=== PATIENT | female | born 1945 | race Caucasian/White ===

== ENCOUNTER 2018-01-03 05:44 | Observation (INO) | payer MEDICARE ==
[2018-01-03] MEDS ORDERED: NS 0.9% 1000 ML* 1,000 ML IV SCH ×3 (06:15→13:49)
[2018-01-03 06:29] LABS: ABS Basophils 0.1 10^3/ul (0-0.2); ABS Eosinophils 0.2 10^3/ul (0-0.6); ABS Lymphocytes 1.2 10^3/ul (1.0-4.8); ABS Monocytes 0.3 10^3/ul (0-0.8); ABS Neutrophils 6.5 10^3/ul (1.5-7.7); ABS Nucleated RBC 0 10^3/ul; Eosinophil % 1.9 % (0-6); Hematocrit 37 % (35-47); Hemoglobin 12.9 g/dl (12.0-16.0); Lymphocyte % 14.3 % (25-47); Mean Corpuscular HGB Conc 35 g/dl (31-36); Mean Corpuscular Hemoglobin 31 pg (27-31); Mean Corpuscular Volume 90 fL (80-97); Mean Platelet Volume 8 um3 (7.4-10.4); Nucleated Red Blood Cells % 0; Platelet Count 214 10^3/ul (150-450); Red Blood Count 4.12 10^6/ul (4.0-5.4); Red Cell Distribution Width 13 % (10.5-15); White Blood Count 8.2 10^3/ul (3.5-10.8)
[2018-01-03 06:45] LABS: INR 0.86 (0.77-1.02)
[2018-01-03 06:46] LABS: EGFR Non-African American 88.5 (>60)
--- NOTE | 2018-01-03 06:47 | ED ---
Heidi Fernandes Thomas, scribed for Sylvie Burt MD on 01/03/18 at 0631 . GI/ HPI - HPI Summary HPI Summary: The patient is a 72 year old female presenting with rectal bleeding since yesterday at 21:00. The patient reports that once hourly she has the urge to defecate, and she passes blood. The additionally complains of diarrhea and abdominal pain that began when the rectal bleeding began. Her last colonoscopy was 10 years ago. She denies a history of diverticulitis. - History of Current Complaint Chief Complaint: EDGIBleed Time Seen by Provider: 01/03/18 06:02 Stated Complaint: SYNCOPE Hx Obtained From: Patient Onset/Duration: Started Hours Ago, Still Present Timing: Intermittent Current Severity: Moderate Pain Intensity: 8 Associated Signs and Symptoms: Positive: Other: - Diarrhea, blood from rectum, abd pain Alleviating Factor(s): Nothing - Allergy/Home Medications Allergies/Adverse Reactions: Allergies Allergy/AdvReac Type Severity Reaction Status Date / Time Sulfa (Sulfonamide Allergy Hives Verified 01/03/18 05:54 Antibiotics) PMH/Surg Hx/FS Hx/Imm Hx Endocrine/Hematology History: Denies: Hx Diabetes Cardiovascular History: Reports: Hx Hypertension GI History: Denies: Hx Diverticulosis - Cancer History Hx Chemotherapy: No Hx Radiation Therapy: No - Surgical History Surgery Procedure, Year, and Place: wisdom teeth Infectious Disease History: No Infectious Disease History: Denies: Hx Clostridium Difficile, Hx Hepatitis, Hx Human Immunodeficiency Virus (HIV), Hx of Known/Suspected MRSA, Hx Shingles, Hx Tuberculosis, Hx Known/ Suspected VRE, Hx Known/Suspected VRSA, History Other Infectious Disease, Traveled Outside the [place] in Last 30 Days - Family History Known Family History: Positive: Cardiac Disease, Hypertension - Social History Alcohol Use: Daily Substance Use Type: Reports: None Smoking Status (MU): Never Smoked Tobacco Review of Systems Negative: Fever Positive: Abdominal Pain, Diarrhea, Other - Blood from rectum All Other Systems Reviewed And Are Negative: Yes Physical Exam - Summary Physical Exam Summary: VITAL SIGNS: Reviewed. GENERAL: Patient is a well-developed and nourished female who is lying comfortable in the stretcher. Patient is not in any acute respiratory distress. HEAD AND FACE: No signs of trauma. No ecchymosis, hematomas or skull depressions. No sinus tenderness. EYES: PERRLA, EOMI x 2, No injected conjunctiva, no nystagmus. EARS: Hearing grossly intact. Ear canals and tympanic membranes are within normal limits. MOUTH: Oropharynx within normal limits. NECK: Supple, trachea is midline, no adenopathy, no JVD, no carotid bruit, no c- spine tenderness, neck with full ROM. CHEST: Symmetric, no tenderness at palpation LUNGS: Clear to auscultation bilaterally. No wheezing or crackles. CVS: Regular rate and rhythm, S1 and S2 present, no murmurs or gallops appreciated. ABDOMEN: Soft, non-tender. No signs of distention. No rebound no guarding, and no masses palpated. Bowel sounds are mildly hyperactive. RECTAL: She does not have any masses. Empty rectum. No stools and no blood. EXTREMITIES: FROM in all major joints, no edema, no cyanosis or clubbing. NEURO: Alert and oriented x 3. No acute neurological deficits. Speech is normal and follows commands. SKIN: Dry and warm Triage Information Reviewed: Yes Vital Signs On Initial Exam: Initial Vitals Temp Pulse Resp BP Pulse Ox 98.5 F 81 16 165/91 98 01/03/18 05:50 01/03/18 05:50 01/03/18 05:50 01/03/18 05:50 01/03/18 05:50 Vital Signs Reviewed: Yes Diagnostics - Vital Signs Vital Signs Temp Pulse Resp BP Pulse Ox 01/03/18 05:50 98.5 F 81 16 165/91 98 - Laboratory Result Diagrams: 01/03/18 06:15 Lab Statement: Any lab studies that have been ordered have been reviewed, and results considered in the medical decision making process. - CT CT Abd/Pel CT Interpretation Completed By: ED Physician - CT A/P is ordered at time of sign out. - EKG 06:14 Cardiac Rate: NL EKG Rhythm: Sinus Rhythm - at 65 BPM EKG Interpretation: LAD. Normal intervals. No ischemic change. GIGU Course/Dx - Course Assessment/Plan: The patient is a 72 year old female presenting with rectal bleeding since yesterday at 21:00. She also complains of diarrhea and abdominal pain. In the ED course the patient was given IV fluids. Bloodwork was obtained. EKG was obtained. CT Abd/Pel is ordered but pending at time of sign out. The patient is diagnosed with rectal bleeding and abdominal pain. The patient is signed out to Dr. Collazo at shift change, pending CT Abd/Pel. - Diagnoses Provider Diagnoses: Rectal bleeding, Abdominal pain Discharge - Discharge Plan Condition: Stable Disposition: OTHER Discharge Disposition Comment: Patient is signed out to Dr. Collazo at shift change pending CT A/P. Referrals: Manny Ramirez MD [Primary Care Provider] - The documentation as recorded by the Heidi hong Thomas accurately reflects the service I personally performed and the decisions made by , Sylvie Burt MD.
[2018-01-03] MEDS ORDERED: Iohexol 300* (CONTRAST) 10 ML SDV IV ONE (08:13)
--- NOTE | 2018-01-03 09:04 | RAD ---
Indication: Abdominal pain. Contrast: Administered 68.2 ml of OMNIPAQUE 300 mg/ml CT of the abdomen and pelvis was performed after oral and IV contrast administration. Coronal and sagittal reconstructed images were obtained. No prior study is available for comparison. Lung bases demonstrate no pleural fluid, nodules or masses. Heart is of normal size without evidence of pericardial effusion. Liver is normal in size. No focal lesions or intrahepatic ductal dilatation is noted. The gallbladder demonstrates no calcified gallstones. No pericholecystic fluid or wall thickening is noted. The spleen is normal in size. The pancreas demonstrates pancreatic duct dilatation without focal masses. No evidence of abrupt termination of the duct is noted. No adrenal masses are noted. The kidneys demonstrate symmetric nephrograms without hydronephrosis. No retroperitoneal lymphadenopathy is noted. The colon is filled with stool. There is circumferential mucosal thickening of the colon from the splenic flexure to the descending colon with pericolonic edema noted. This is suspicious for colitis. This may be due to inflammatory bowel disease, ischemic or infectious colitis. The sigmoid colon is otherwise unremarkable. The uterus and ovaries are unremarkable. A small amount of free fluid is noted in the pelvis. Urinary bladder is otherwise unremarkable. There are multiple prominent vascular structures along the uterus with a prominent left ovarian vein. The possibility of pelvic congestion should BE considered. The bony structures demonstrate multilevel degenerative disc disease. No compression fracture is noted. IMPRESSION: THERE IS MUCOSAL THICKENING OF THE COLON FROM THE SPLENIC FLEXURE TO THE PROXIMAL DESCENDING COLON WITH PERICOLONIC EDEMA AND SOME FREE FLUID IN THE PELVIS. FINDINGS ARE SUSPICIOUS FOR COLITIS WHICH MAY BE INFECTIOUS, ISCHEMIC OR INFLAMMATORY. SMALL AMOUNT OF FREE FLUID IS NOTED IN THE PELVIS. PROMINENT OVARIAN AND UTERINE VESSELS ARE NOTED WITH A PROMINENT LEFT OVARIAN VEIN IN THE POSSIBILITY OF PELVIC CONGESTION SHOULD BE CONSIDERED.
[2018-01-03] MEDS ORDERED: NS 0.9% 1000 ML* 1,000 ML IV ONE (10:32)
[2018-01-03] MEDS ORDERED: Morphine INJ* 2 MG/ML 1 ML CARPUJECT IV PRN (11:39)
[2018-01-03] MEDS ORDERED: Ondansetron INJ* 2 MG/ML VIAL IV PRN (11:39)
--- NOTE | 2018-01-03 11:55 | ED ---
Jacinto Fernandes Stephanie, swetaibed for Saroj Collazo MD on 01/03/18 at 1140 . Progress - Results/Orders Results/Orders: CT abdomen/pelvis reveals: THERE IS MUCOSAL THICKENING OF THE COLON FROM THE SPLENIC FLEXURE TO THE PROXIMAL DESCENDING COLON WITH PERICOLONIC EDEMA AND SOME FREE FLUID IN THE PELVIS. FINDINGS ARE SUSPICIOUS FOR COLITIS WHICH MAY BE INFECTIOUS, ISCHEMIC OR INFLAMMATORY. SMALL AMOUNT OF FREE FLUID IS NOTED IN THE PELVIS. PROMINENT OVARIAN AND UTERINE VESSELS ARE NOTED WITH A PROMINENT LEFT OVARIAN VEIN IN THE POSSIBILITY OF PELVIC CONGESTION SHOULD BE CONSIDERED. ED physician agrees with this report. Course/Dx - Course Course Of Treatment: The pt continues to have a BM hourly. The BM is about .5 a cup each time. Initially, the stool was bloody. As time has progressed, the stool has become a black/rown liquidy stool. Volume is still about 40 cc. The pt was discussed with Dr. Stringer who suggests admission. Hospital accepts admission of the pt into the hospital. The pt understands and agrees with plan of admission. - Diagnoses Provider Diagnoses: Rectal bleeding, Abdominal pain, Diarrhea Discharge - Sign-Out/Discharge Documenting (check all that apply): Discharge, Receiving Sign-Out Receiving patient FROM: Sylvie Burt - Discharge Plan Condition: Stable Disposition: ADMITTED TO [facility] - Billing Disposition and Condition Condition: STABLE [place] [facility] [place] The documentation as recorded by the Jacinto hong Stephanie accurately reflects the service I personally performed and the decisions made by , Saroj Collazo MD.
[2018-01-03 12:56] LABS: Hematocrit 36 % (35-47); Hemoglobin 12.4 g/dl (12.0-16.0)
[2018-01-03] MEDS: Acetaminophen TAB* 325 MG PO PRN ×2 (13:39→22:47)
[2018-01-03] MEDS: metroNIDAZOLE IV 500 MG/100ML* 500 MG/100 ML BAG IVPB SCH ×2 (13:40→22:49)
[2018-01-03] MEDS: Ciprofloxacin 400MG IVPREMIX(* 400 MG/200 ML BAG IVPB SCH (13:52)
[2018-01-03] MEDS ORDERED: Al Hydrox/Mg Hydrox/Simet LIQ* 30 ML UDC PO ONE (15:19)
[2018-01-03] MEDS ORDERED: Lidocaine 2% VISCOUS* 15 ML UDC PO ONE (15:19)
--- NOTE | 2018-01-03 18:19 | ECHO ---
Patient: ISABEL ROSALES [facility] Rec#: [id number] : 1945 Date: 01/03/2018 Age: 72y Height: 152.4 cm / 60.0 in Weight: 50.8 kg / 112.0 lbs Sex: F BSA: 1.46 Room#: [facility] Admit Date#: 01/03/2018 Type: Inpatient Referring: Joshua Seaman NP Reading: Dudley Odom MD Brim Edge Trimmer: Katheryn Torres RN RDCS CC: Manny Ramirez MD Transthoracic Echocardiogram Indication: Syncope BP: 163/85 HR: 61 Rhythm: NSR Findings History: HTN Technical Comments: The study quality is fair. Left Ventricle: The left ventricular chamber size is normal. Mild concentric left ventricular hypertrophy is observed. There is increased basal septal hypertrophy noted without evidence of an increased gradient across the left ventricular outflow tract. Global left ventricular wall motion and contractility are within normal limits. There is normal left ventricular systolic function. The estimated ejection fraction is 60-65%. There is an E to A reversal in the mitral valve flow pattern suggestive of diastolic dysfunction. Left Atrium: The left atrial chamber size is normal. Right Ventricle: The right ventricular chamber size and systolic function are within normal limits. Right Atrium: The right atrial cavity size is normal. Aortic Valve: The aortic valve is trileaflet. The aortic valve leaflets are mildly thickened. There is no evidence of aortic regurgitation. There is no evidence of aortic stenosis. Mitral Valve: The mitral valve leaflets are mildly thickened. Mild subvalvular thickening of the mitral valve is visualized. There is mild mitral regurgitation. There is no evidence of mitral stenosis. Tricuspid Valve: The tricuspid valve leaflets are normal. There is mild to moderate tricuspid regurgitation. No pulmonary hypertension is noted. There is no tricuspid stenosis. Pulmonic Valve: The pulmonic valve appears normal. There is a trace pulmonic regurgitation. There is no pulmonic stenosis. Pericardium: There is no significant pericardial effusion. A pericardial fat pad is visualized. Aorta: There is no dilatation of the ascending aorta. There is no dilatation of the aortic arch. There is no dilation of the aortic root. Pulmonary Artery: The main pulmonary artery appears normal. Venous: The inferior vena cava appears normal in size. There is a greater than 50% respiratory change in the inferior vena cava dimension. Conclusions Global left ventricular wall motion and contractility are within normal limits. There is normal left ventricular systolic function. The estimated ejection fraction is 60-65%. The right ventricular chamber size and systolic function are within normal limits. There is no evidence of aortic stenosis. Mild subvalvular thickening of the mitral valve is visualized. There is mild mitral regurgitation. There is mild to moderate tricuspid regurgitation. No pulmonary hypertension is noted. There is no significant pericardial effusion. Measurements Name Value Normal Range RVDdMajor (2D) 3.5 cm (2.2 - 4.4) RAd ISD 4CH 4.4 cm (3.4 - 4.9) RA (A4C)W 3.7 cm (2.9 - 4.6) IVSd (2D) 1.2 cm (0.6 - 1) LVPWd (2D) 1.1 cm (0.6 - 1) LVIDd (2D) 3.6 cm (3.6 - 5.4) LVIDs (2D) 2.3 cm - LV FS (2D) 35 % (25 - 45) Aortic Annulus 1.8 cm (1.4 - 2.6) Ao root diameter (2D) 3.1 cm (2.1 - 3.5) Ascending Ao 3 cm (2.1 - 3.4) Aortic arch 2.3 cm (1.8 - 3.4) LA dimension (AP) 2D 2.9 cm (2.3 - 3.8) LAd ISD 4CH 4.4 cm (2.9 - 5.3) LA ISD 4CH W 4.4 cm (2.5 - 4.5) Name Value Normal Range LA ESV SP 4CH (A/L) 47 ml - LA ESV SP 2CH (A/L) 46 ml - LA ESV BP (A/L) 48 ml - LA ESV BP (A/L) index 33.2 ml/m2 - LA ESV SP 4CH (MOD) 41 ml - LA ESV SP 2CH (MOD) 44 ml - Name Value Normal Range MV E-wave Vmax 0.53 m/sec - MV deceleration time 420 msec - MV A-wave Vmax 0.84 m/sec - MV E:A ratio 0.63 ratio - LV septal e' Vmax 0.04 m/sec - LV lateral e' Vmax 0.07 m/sec - LV E:e' septal ratio 13.3 ratio - LV E:e' lateral ratio 7.6 ratio - Name Value Normal Range AV Vmax 1.1 m/sec - AV VTI 21.6 cm - AV peak gradient 4.6 mmHg - AV mean gradient 2.2 mmHg - LVOT Vmax 0.96 m/sec - LVOT VTI 21.8 cm - LVOT peak gradient 3.7 mmHg - LVOT mean gradient 1.7 mmHg - FRANK Vmax 0.74 m/sec - Name Value Normal Range TR Vmax 2.4 m/sec - TR peak gradient 23 mmHg - RAP 3 mmHg - RVSP 26 mmHg - IVC diameter 1.6 cm - Name Value Normal Range PV Vmax 0.72 m/sec -
--- NOTE | 2018-01-03 18:35 | HP ---
CC: Dr. Manny Ramirez; Dr. Stringer * HISTORY AND PHYSICAL: DATE OF ADMISSION: 01/03/18 PRIMARY CARE PROVIDER: Dr. Manny Ramirez from [place]. ATTENDING PHYSICIAN WHILE IN THE HOSPITAL: Danelle Raphael DO * (report dictated by Joshua Seaman NP) CONSULTING PROGRAM MANAGEMENT MANAGER: Dr. Stringer. CHIEF COMPLAINT: 1. Lower abdominal pain. 2. Bright red blood per rectum. 3. Diarrhea. HISTORY OF PRESENT ILLNESS: Mrs. Forte is a 72-year-old female patient. She is pretty healthy. She has a history of hypertension and has a history of hyperlipidemia. She presents today stating that on Tuesday, she developed diarrhea throughout the day. She thought maybe she had a GI bug. She took Pepto- Bismol and Imodium. She went to bed. She had several bouts of diarrhea. No recent antibiotics. No recent travel. Her and her had eaten the same meals and he had had no symptoms. The patient took Pepto-Bismol and Imodium. She felt better. On Tuesday, was eating. She felt good throughout Tuesday until the evening hours when she started developing diarrhea again. Around 2100 yesterday, she started noticing that about every hour she was having bright red blood per rectum with each bowel moment. She was having lower abdominal cramping. She had an episode of nausea. She did have an episode on Tuesday when she was having the cramping and the abdominal pain and diarrhea, where she fainted which she has done previously. She had palpitations with this episode, but no chest pain or shortness of breath with this episode and it was a solo episode and she has not been having any lightheadedness with position change. She continued to have diarrhea Tuesday evening until Tuesday morning around 5:30 in the morning. She was concerned she was losing quite a bit of blood. She decided to come into the emergency department to be evaluated. She states since being here she has been having diarrhea about every half an hour, but she has not noticed bright red blood like she had noticed previously. She again denies any recent travel, denies having any vomiting with this episode and states the pain really comes on when she is having the diarrhea and it is mostly in the lower quadrant of her abdomen described as a cramping tight feeling that comes and goes. She came in to the ED, was evaluated. CAT scan imaging did show concern for colitis in the descending colon and sigmoid colon area. Because of these findings, we were asked to evaluate for admission. PAST MEDICAL HISTORY: Significant for: 1. Hypertension. 2. Hyperlipidemia. PAST SURGICAL HISTORY: Denied. HOME MEDICATIONS: Include: 1. Mobic 15 mg p.o. daily as needed. 2. Pravachol 80 mg p.o. daily. 3. Lisinopril 10 mg p.o. daily. 4. Aspirin 81 mg daily. ALLERGIES TO MEDICATIONS: Include SULFA ANTIBIOTICS. FAMILY HISTORY: Her mother had a history of CVA. Father had a history of CAD and AL. SOCIAL HISTORY: She does not smoke. She occasionally drinks alcohol, maybe 1 to 2 drinks a week. Her surrogate decision maker is her . REVIEW OF SYSTEMS: There is no documented fever. She denied having any significant weight change. There was no double vision. She denies having any ear discharge. There is no rhinorrhea. No sore throat, no thyroid enlargement. She denies having any chest pain. There is no shortness of breath. She did admit to having palpitations. She does admit to having abdominal discomfort per my HPI. There was bright red blood per rectum. There was episode of nausea , but no vomiting. She denied having any fevers. There was 1 episode of syncope and no episodes of seizure or incontinence was reported. Review of 14 systems completed, all others negative. PHYSICAL EXAMINATION GENERAL: At this time, Mrs. Forte is a 72-year-old female patient, she is sitting in the ED stretcher. She does not appear to in any acute distress. She is awake and alert, appears to be well nourished, well developed. VITAL SIGNS: Blood pressure 162/81, pulse 68, respirations 18, O2 sat 99%, temperature 98.5. HEENT: Head is atraumatic, normocephalic. Eyes: EOMs intact. Sclerae anicteric. Conjunctivae not pale. Throat: Oral mucosa appears to be moist. No oropharyngeal erythema. NECK: Supple. LUNGS: Clear to auscultation bilaterally. No wheezes, rales, or rhonchi. HEART: Sounds S1 and S2. Regular rate and rhythm. No murmurs, rubs, or gallops. ABDOMEN: Soft, flat. Bowel sounds are hypoactive. There was tenderness in the left lower quadrant at this point. EXTREMITIES: Pulses were 2+ throughout. She had no peripheral edema. She is moving all 4 extremities with 5/5 strength. NEUROLOGIC: She is awake, alert, oriented x3. Tongue midline. Circular Saw Edge Fuser were equal. No gross focal deficits. SKIN: Intact. LABORATORY DATA/DIAGNOSTIC STUDIES: WBC 8.2, RBC 4.12, hemoglobin 12.9, hematocrit 37, and platelet count 214,000. INR 0.86, PTT 26.0. Sodium 128, potassium 3.8, chloride 97, bicarb 25, BUN 8, creatinine 0.66, glucose 110, lactate 0.8, calcium 9.8, total bili 1.0, AST 19, ALT 20, alk phos 68, albumin 4.1. She did have a CT abdomen and pelvis, impression: There is mucosal thickening in the colon from the to the proximal descending colon with pericolonic edema and some free fluid in the pelvis. Findings were suspicious for colitis, which may be infectious, ischemic, or inflammatory. Small amount of free fluid is noted in the pelvis. Impression: Prominent ovarian and uterine vessels are noted within the prominent left ovarian vein and the possibility of pelvic congestion should be considered. She also had an EKG obtained today as well which showed normal sinus rhythm, rate of 65. She had no ST elevations or T-wave inversions noted. Old medical records were reviewed. ASSESSMENT AND PLAN: Mrs. Forte is a 72-year-old female patient, relatively healthy, coming into the ED today with complaints of abdominal discomfort, bright red blood per rectum, and abdominal pain. On evaluation, found to have colitis. She will be admitted under inpatient status for: 1. Colitis. Again at this point, etiology could certainly be infectious or ischemic. Most likely it is ischemic colitis. My plan would be to allow for bowel rest, clear liquids only, GI consult, Cipro and Flagyl, sending off stool studies on the patient as well. Those are still pending and continuing to follow and getting GI input, clear liquid diet, n.p.o. after midnight for possible flex sig in the morning and I am hydrating with normal saline. I am also checking ESR and CRP. 2. Syncope. This is probably vasovagal. She has had episodes in the past. She has never had formal evaluation, so I think it would be appropriate to check orthostatics, cycle 3 sets of troponin. She is not having any chest pain. Place her on telemetry and check an echo and to continue to follow up. Most likely this was vasovagal in the setting of her having abdominal cramping and diarrhea. 3. Lower GI bleed probably secondary to ischemic colitis. I am checking her serial H and H's. After having bloody stools all of last night, her hemoglobin was 12.9. We will repeat this every 6 hours and follow transfuse as needed and I did ask for 2 peripheral IV's. 4. Hyponatremia, probably secondary to dehydration from all the diarrhea. We will hydrate her. Repeat labs in the morning and monitor. 5. Hypertension. In the setting of acute illness, I am going to hold the lisinopril. Should her blood pressure systolics get to greater than 180, I certainly will treat with p.r.n. hydralazine, but we will continue to monitor this. 6. Hyperlipidemia. Continue statin therapy. 7. DVT prophylaxis because of lower GI bleeding, I am going to put her just on SCDs. 8. Code status. Full code. 9. Fluids, electrolytes, and nutrition. She can have a clear liquid diet and n.p.o. after midnight. TIME SPENT: Time spent on admission, 60 minutes; greater than half the time spent [id number] with the patient obtaining my history and physical, other half of the time spent going over the plan of care with the patient and implementing the plan of care. I did discuss the plan of care with my attending, Dr. Raphael, she is in agreement. JOSHUA SEAMAN, HARSHAD [id number]/[facility] #: [id number] KEVIN
[2018-01-03 18:41] LABS: Urine Appearance Clear; Urine Blood 1+ (Negative); Urine Color Straw; Urine Ketones Negative (Negative); Urine Protein Negative (Negative); Urine Urobilinogen Negative (Negative)
[2018-01-03 18:55] LABS: Hematocrit 36 % (35-47); Hemoglobin 12.4 g/dl (12.0-16.0)
[2018-01-03] MEDS: CMCS Melatonin (NF) 3 MG TAB PO SCH (23:00)
[2018-01-04] MEDS ORDERED: NS 0.9% 1000 ML* 1,000 ML IV ONE
[2018-01-04 00:41] LABS: Hematocrit 34 % (35-47); Hemoglobin 11.9 g/dl (12.0-16.0)
[2018-01-04] MEDS: Ciprofloxacin 400MG IVPREMIX(* 400 MG/200 ML BAG IVPB SCH ×2 (00:41→12:26)
[2018-01-04] MEDS: metroNIDAZOLE IV 500 MG/100ML* 500 MG/100 ML BAG IVPB SCH ×3 (05:52→21:05)
[2018-01-04 06:17] LABS: ABS Basophils 0.1 10^3/ul (0-0.2); ABS Eosinophils 0.1 10^3/ul (0-0.6); ABS Lymphocytes 1.2 10^3/ul (1.0-4.8); ABS Monocytes 0.3 10^3/ul (0-0.8); ABS Neutrophils 4.8 10^3/ul (1.5-7.7); ABS Nucleated RBC 0 10^3/ul; Eosinophil % 1.8 % (0-6); Hematocrit 33 % (35-47); Hemoglobin 11.4 g/dl (12.0-16.0); Lymphocyte % 18.4 % (25-47); Mean Corpuscular HGB Conc 35 g/dl (31-36); Mean Corpuscular Hemoglobin 31 pg (27-31); Mean Corpuscular Volume 90 fL (80-97); Mean Platelet Volume 8 um3 (7.4-10.4); Nucleated Red Blood Cells % 0.1; Platelet Count 201 10^3/ul (150-450); Red Blood Count 3.66 10^6/ul (4.0-5.4); Red Cell Distribution Width 13 % (10.5-15); White Blood Count 6.5 10^3/ul (3.5-10.8)
[2018-01-04 06:22] LABS: INR 0.99 (0.77-1.02)
[2018-01-04] MEDS: Acetaminophen TAB* 325 MG PO PRN ×2 (08:11→14:10)
[2018-01-04] MEDS: Atorvastatin* 40 MG TAB PO SCH (08:11)
--- NOTE | 2018-01-04 08:39 | PN ---
Subjective Date of Service: 01/04/18 Interval History: Patient seen and examined at bedside. Endorses feeling tired but denies any abdominal pain, n/v, fever/chills. Reports abdominal discomfort when having diarrhea but no stools recently. No further episode of BRBPR. Denies chest pain , difficulty breathing. Discussed plan for flex sigmoidoscopy today. Family History: Unchanged from Admission Social History: Unchanged from Admission Past Medical History: Unchanged from Admission Objective Active Medications: Acetaminophen (Tylenol Tab*) 650 mg PO Q4H PRN PRN Reason: FEVER/PAIN Last Admin: 01/04/18 08:11 Dose: 650 mg Atorvastatin Calcium (Lipitor*) 40 mg PO DAILY ARRON PRN Reason: Protocol Last Admin: 01/04/18 08:11 Dose: 40 mg Ciprofloxacin/Dextrose (Cipro 400 Mg Ivpremix(*)) 400 mg in 200 mls @ 200 mls/ hr IVPB Q12H [facility] Last Admin: 01/04/18 00:41 Dose: 200 mls/hr Metronidazole/Sodium Chloride (Flagyl 500 Mg Ivpb*) 500 mg in 100 mls @ 100 mls /hr IVPB Q8H [facility] Last Admin: 01/04/18 05:52 Dose: 100 mls/hr Sodium Chloride (Ns 0.9% 1000 Ml*) 1,000 mls @ 100 mls/hr IV ONCE ONE Stop: 01/04/18 09:59 Last Admin: 01/04/18 00:51 Dose: 100 mls/hr Melatonin (Melatonin (Nf)) 3 mg PO BEDTIME [facility] Last Admin: 01/03/18 23:00 Dose: 3 mg Morphine Sulfate (Morphine Inj (Syringe)*) 2 mg IV Q4H PRN PRN Reason: PAIN - MILD Ondansetron HCl (Zofran Inj*) 4 mg IV Q6H PRN PRN Reason: NAUSEA Vital Signs - 8 hr 01/04/18 01/04/18 03:33 07:41 Temperature 98.1 F 98.9 F Pulse Rate 71 64 Respiratory 16 20 Rate Blood Pressure 138/80 143/77 (mmHg) O2 Sat by Pulse 97 99 Oximetry Oxygen Devices in Use Now: None Appearance: Older female, lying in bed, in NAD Eyes: No Scleral Icterus, PERRLA Ears/Nose/Mouth/Throat: Clear Oropharnyx, Mucous Membranes Moist Neck: NL Appearance and Movements; NL JVP Respiratory: Symmetrical Chest Expansion and Respiratory Effort, Clear to Auscultation Cardiovascular: NL Sounds; No Murmurs; No JVD, RRR Abdominal: - - mild abdominal tenderness to low abdomen, positive BS Extremities: No Edema, No Clubbing, Cyanosis Skin: No Rash or Ulcers Neurological: Alert and Oriented x 3, NL Muscle Strength and Tone Lines/Tubes/Other Access: Clean, Dry and Intact Peripheral IV Result Diagrams: 01/04/18 06:11 01/04/18 06:11 Assess/Plan/Problems-Billing Assessment: Ms. Forte is a 72 yo female who presented to the ER with BRBPR, diarrhea, and abdominal pain that appears secondary to lower GIB and colitis. - Patient Problems (1) Colitis Code(s): K52.9 - NONINFECTIVE GASTROENTERITIS AND COLITIS, UNSPECIFIED Comment : Appears stable Continue NPO status/bowel rest, plan for flex sigmoidoscopy today CRP 11, ESR unremarkable, lactic acid WNL Apprecaite GI consult and recommendations Continue ciprofloxacin and metronidazole at this time. Stool studies pending (2) Lower gastrointestinal bleed Code(s): K92.2 - GASTROINTESTINAL HEMORRHAGE, UNSPECIFIED Comment: HH stable No further episodes of bleeding at this point Continue supportive care, IVF Intermittently trend HH (3) Hyponatremia Code(s): E87.1 - HYPO-OSMOLALITY AND HYPONATREMIA Comment: Acute, likely secondary to hypovolemia Now resolved (4) Syncope Code(s): R55 - SYNCOPE AND COLLAPSE Comment: No further episodes here, suspect vasovagal syncope No arrhythmias noted on telemetry, patient in SR Troponins unremarkable Patient was positive for orthostasis from lying to sitting. Will repeat orthostatics after receiving IVF Patient with normal systolic function and mild to mod TR on echocardiogram (5) HTN (hypertension) Code(s): I10 - ESSENTIAL (PRIMARY) HYPERTENSION Comment: Antihypertensives held in acute GIB Patient's BP climbing Plan to resume home lisinopril tomorrow with hold parameters. (6) HLD (hyperlipidemia) Code(s): E78.5 - HYPERLIPIDEMIA, UNSPECIFIED Comment: Continue statin when taking PO. (7) DVT prophylaxis Comment: SCDS in the setting of acute gastrointestinal bleeding. Status and Disposition: OBV admit.
[2018-01-04] MEDS ORDERED: fentaNYL* 50 MCG/ML 2 ML VIAL (100 MCG VIAL) ONE (16:03)
[2018-01-04] MEDS ORDERED: Midazolam* 1 MG/ML 10 ML VIAL (10 MG) ONE (16:03)
--- NOTE | 2018-01-04 19:01 | PN ---
Progress Note - Progress Note Date of Service: 01/04/18 - Gastroenterology Note: Patient seen and examined. No new overnight issues. Abdominal cramping has improved. Not much of an appetite. No nausea/emesis. No further rectal bleeding but diarrhea persists but much improved. Vital Signs: Temp Pulse Resp BP Pulse Ox 98.2 F 60 16 149/75 100 01/04/18 15:04 01/04/18 17:22 01/04/18 17:22 01/04/18 17:22 01/04/18 17:22 Physical Examination: GENERAL: NAD. CV: RRR. PULM: CTAB. ABDOMEN: Soft, mild ttp in LUQ, non-distended. +BS. EXT: No edema in lower extremities b/l. Laboratory Results - last 24 hr 01/04/18 01/04/18 01/04/18 00:26 06:11 06:11 WBC 6.5 RBC 3.66 L Hgb 11.9 L 11.4 L Hct 34 L 33 L MCV 90 MCH 31 MCHC 35 RDW 13 Plt Count 201 MPV 8 Neut % (Auto) 73.8 Lymph % (Auto) 18.4 L Morrow % (Auto) 5.2 Eos % (Auto) 1.8 Baso % (Auto) 0.8 Absolute Neuts (auto) 4.8 Absolute Lymphs (auto) 1.2 Absolute Monos (auto) 0.3 Absolute Eos (auto) 0.1 Absolute Basos (auto) 0.1 Absolute Nucleated RBC 0 Nucleated RBC % 0.1 INR (Anticoag Therapy) 0.99 Sodium Potassium Chloride Carbon Dioxide Anion Gap BUN Creatinine Est GFR ( Amer) Est GFR (Non-Af Amer) BUN/Creatinine Ratio Glucose Calcium 01/04/18 06:11 WBC RBC Hgb Hct MCV MCH MCHC RDW Plt Count MPV Neut % (Auto) Lymph % (Auto) Morrow % (Auto) Eos % (Auto) Baso % (Auto) Absolute Neuts (auto) Absolute Lymphs (auto) Absolute Monos (auto) Absolute Eos (auto) Absolute Basos (auto) Absolute Nucleated RBC Nucleated RBC % INR (Anticoag Therapy) Sodium 136 D Potassium 3.6 Chloride 106 Carbon Dioxide 23 Anion Gap 7 BUN 5 L Creatinine 0.56 Est GFR ( Amer) 137.6 Est GFR (Non-Af Amer) 107.0 BUN/Creatinine Ratio 8.9 Glucose 101 H Calcium 9.2 72 yo female with rectal bleeding, diarrhea, and colitis in the splenic flexure and descending colon seen on CT imaging. She was noted to be orthostatic while in the hospital. Stool studies are pending. Colonoscopy today revealed colitis more c/w ischemic colitis than infectious colitis. Biopsies are pending. 1. Rectal bleeding with diarrhea and abdominal pain - improving. ~CT revealing colitis at the splenic flexure and descending colon. ~Colonoscopy done today: colitis involving the descending and sigmoid colon. Biopsies are pending. ~Stool studies pending. ~On IV antibiotics. ~Diet advanced to regular tonight. 2. Syncope with orthostatic hypotension ~On IVFs 3. HTN, HL Discussed results with Dr. Parada and patient's . Please call with any further questions or concerns. Domenica Khalil D.O.
--- NOTE | 2018-01-04 22:20 | CONS ---
GASTROENTEROLOGY CONSULT: DATE OF CONSULT : 01/03/18 CONSULTING PHYSICIAN: Saroj Collazo, Emergency Room; Manny Ramirez, [facility]. REASON FOR CONSULTATION: Bloody diarrhea HISTORY OF PRESENT ILLNESS: This 72-year-old woman, who has no particular chronic gastrointestinal concerns, developed some loose stools 3 days ago. There is no fever and no bleeding. She slept fine, not having to get up for diarrhea. She took an Imodium and then was better. She also took some Pepto- Bismol. She was then asymptomatic for about a day, but then yesterday in the middle of the afternoon developed acute abdominal pain and diaphoresis and had a loose stool. There were several more and then around 9 p.m., she started saying blood and had hourly passages of small amounts of blood since then. She did not have any overt fever. She did faint with the initial event. Coming to the ER, she appeared fairly well and the frequency of stools diminished and then stopped. CT scan showed thickening of the left colon. She had a colonoscopy in december 2007 with negative findings to her recollection. PAST MEDICAL HISTORY:1. Hypertension.2. Dyslipidemia.3. Osteoarthritis. MEDICATIONS: Aspirin 81 Pravachol 80 Lisinopril 10 Mobic 15. MEDICATION ALLERGIES: SULFA. FAMILY HISTORY: Her mother had a stroke and passed 15 years later of a malignancy. Her father had coronary artery disease and an LA. SOCIAL HISTORY: She is and fairly recently retired. REVIEW OF SYSTEMS: Just a month ago, she had her annual visit with Dr. Ramirez, which included blood work and all seemed to be fine. There is no history of seizures, prior syncope, CVA, palpitations, angina, hepatitis, jaundice, hematuria, or recent fall or fracture. PHYSICAL EXAM: She is a healthy-appearing slender, older woman, in no distress. HEENT: She is anicteric. Mucous membranes are normal. Her lungs are clear. Her heart sounds are normal. The abdomen is symmetric with normal bowel sounds, soft. A little bit of left-sided deep tenderness, but not particularly remarkable. Rectal: Deferred. Extremities show no edema and pulses are intact. DIAGNOSTIC STUDIES/LAB DATA: Initial CBC: Hemoglobin 12.9, white count 8.2, platelets 214. INR 0.86. EKG - normal with normal sinus rhythm. IMPRESSION: Abrupt onset bloody diarrhea without fever and the lack of an infectious prodrome or continuing symptoms evolving towards that point towards an ischemic colitis event. Unprepped flexible sigmoidoscopy should be helpful. She has used several doses of Pepto-Bismol, which may obviously darken what is coming through though she really has no sign of upper bleeding with the BUN of 8 and a minimal drop in hemoglobin. [id number]/[facility] #: [id number] MTDD
[2018-01-04] MEDS: CMCS Melatonin (NF) 3 MG TAB PO SCH (23:05)
[2018-01-05] MEDS: Ciprofloxacin 400MG IVPREMIX(* 400 MG/200 ML BAG IVPB SCH ×2 (00:11→12:17)
[2018-01-05] MEDS: Acetaminophen TAB* 325 MG PO PRN (05:45)
[2018-01-05] MEDS: metroNIDAZOLE IV 500 MG/100ML* 500 MG/100 ML BAG IVPB SCH ×2 (05:46→13:27)
[2018-01-05] MEDS: Atorvastatin* 40 MG TAB PO SCH (08:40)
[2018-01-05] MEDS ORDERED: Lisinopril TAB* 10 MG PO SCH (09:00)
[2018-01-05 11:50] VITALS: BP 132/65
--- NOTE | 2018-01-05 13:10 | PN ---
Subjective Date of Service: 01/05/18 Interval History: Patient reports feeling well and is eager for discharge to home. Family History: Unchanged from Admission Social History: Unchanged from Admission Past Medical History: Unchanged from Admission Objective Active Medications: Acetaminophen (Tylenol Tab*) 650 mg PO Q4H PRN Atorvastatin Calcium (Lipitor*) 40 mg PO DAILY ARRON Ciprofloxacin/Dextrose (Cipro 400 Mg Ivpremix(*)) 400 mg in 200 mls @ 200 mls/ hr IVPB Q12H [facility] Metronidazole/Sodium Chloride (Flagyl 500 Mg Ivpb*) 500 mg in 100 mls @ 100 mls /hr IVPB Q8H [facility] Lisinopril (Prinivil Tab*) 10 mg PO DAILY ARRON Melatonin (Melatonin (Nf)) 3 mg PO BEDTIME [facility] Morphine Sulfate (Morphine Inj (Syringe)*) 2 mg IV Q4H PRN Ondansetron HCl (Zofran Inj*) 4 mg IV Q6H PRN Vital Signs: Temp Pulse Resp BP Pulse Ox 98.0 F 63 16 132/65 100 01/05/18 11:12 01/05/18 11:49 01/05/18 11:12 01/05/18 11:49 01/05/18 11:12 Oxygen Devices in Use Now: None Appearance: Female sitting up in bed in NAD Eyes: No Scleral Icterus Ears/Nose/Mouth/Throat: Mucous Membranes Moist Neck: Trachea Midline Respiratory: Symmetrical Chest Expansion and Respiratory Effort, Clear to Auscultation Cardiovascular: NL Sounds; No Murmurs; No JVD, No Edema Abdominal: NL Sounds; No Tenderness; No Distention Lymphatic: No Cervical Adenopathy Extremities: No Edema Skin: No Rash or Ulcers Neurological: Alert and Oriented x 3, NL Muscle Strength and Tone Nutrition: Taking PO's Result Diagrams: 01/04/18 06:11 01/04/18 06:11 Assess/Plan/Problems-Billing Assessment: Ms. Forte is a 72 yo female who presented to the ER with BRBPR, diarrhea, and abdominal pain secondary to lower GIB and colitis. - Patient Problems (1) Colitis Comment: - Remained stable overnight. Hgb stable. - Flex sigmoidoscopy showed colitis only, ischemic vs infectious with biopsies pending. - Appreciate GI consult and recommendations. - Continue ciprofloxacin and metronidazole. - Stool studies negative. (2) Syncope Comment: - No further orthostasis. - No arrhythmias noted on telemetry, patient in SR - Troponins unremarkable. Patient with normal systolic function and mild to mod TR on echocardiogram (3) HLD (hyperlipidemia) Comment: - Continue statin when taking PO. (4) HTN (hypertension) Comment: - Continue lisinopril. (5) DVT prophylaxis Comment: SCDS in the setting of acute gastrointestinal bleeding. Status and Disposition: Discharge to home.
--- NOTE | 2018-01-05 13:41 | PRO ---
CC: Dr. Ramirez; Dr. Domenica Khalil; HARSHAD Seaman. GASTROENTEROLOGY OPERATIVE REPORT: DATE OF PROCEDURE: 01/04/18 OPERATIVE PROCEDURE: Colonoscopy to the cecal base. SURGEON: Domenica Khalil MD ANESTHESIA: 1. Midazolam 6 mg IV. 2. Fentanyl 100 mcg IV. HISTORY OF PRESENT ILLNESS: Priya is a pleasant 72-year-old female who presented to [facility] ER with complaints of abdominal cramping, diarrhea, and rectal bleeding. CT of the abdomen revealed colitis of the sigmoid colon, descending colon and splenic flexure. Currently, the patient is on antibiotics and receiving IV fluid hydration for possible infectious colitis versus ischemic colitis. Stool studies are pending. PREOPERATIVE DIAGNOSES: 1. Diarrhea. 2. Rectal bleeding. 3. Abdominal pain. 4. Abnormal CT imaging. POSTOPERATIVE DIAGNOSES: 1. Mild exudative, erythematous and granular colitis from the 30 cm to 70 cm of the colon. In some areas there was decreased vasculature as well. The colitis appears to be more ischemic colitis in nature versus infectious colitis. Multiple biopsies were obtained from this area. 2. The cecum, ascending colon, transverse colon and rectum were otherwise normal appearing. 3. Fair colonoscopy preparation. RECOMMENDATIONS: 1. Follow up with path results. 2. May advance to full liquid diet and as tolerated. 3. We will follow up on stool studies. 4. Currently on IV antibiotics. 5. The patient will need a colorectal cancer screening colonoscopy in the future as the patient's preparation was not optimal and polyps less than 5 mm may have been missed on this examination. 6. Continue IV hydration. DESCRIPTION OF PROCEDURE: Colonoscopy was explained in detail to the patient. The risks, benefits, complications, alternatives, and possibilities of missed lesions were explained and understood. Complications included, but were not limited to reaction to anesthesia, aspiration, increased risk of bleeding, and perforation. All questions were answered. The patient demonstrated understanding of the conversation and informed consent was obtained. Next, the patient was brought to the endoscopy suite and placed in the left lateral recumbent position while blood pressure, cardiac, and oxygen monitors were applied. The patient was found to be a fit candidate for moderate anesthesia. After adequate IV sedation was achieved, a digital rectal exam was performed which revealed normal sphincter tone. No palpable masses were appreciated. Next, a standard adult Olympus colonoscope was inserted through the rectum, maneuvered all the way to the cecal base where the ileocecal valve and appendiceal orifice were identified and photographed. Next, the colonoscope was withdrawn in a fashion that allowed adequate visualization of the bowel. The patient's overall vasculature distribution was normal, slightly decreased from 30-70 cm of the colon. The cecum, ascending colon, transverse colon were normal appearing. Entry into the descending colon at 70 cm to 30 cm revealed erythematous changes and patchy areas of exudate. The endoscopic appearance was related to ischemic colitis versus infectious colitis. Multiple forceps biopsies were obtained of these areas. Entry into the rectum revealed normal-appearing mucosa. Retroflexion was performed and showed small nonbleeding internal hemorrhoids. Air was then removed from the patient. Colonoscope was removed from the patient. The patient tolerated the procedure well. There were no immediate complications. After a period of observation, the patient was transferred back to the medical floor for further treatment and care. Thank you, Dr. Seaman for allowing us to participate in the care of your patient. If you should have any further questions or concerns, please do not hesitate to contact us. [id number]/[facility] #: [id number] KEVIN
--- NOTE | 2018-01-06 03:30 | DS ---
CC: Dr. Ramirez; Dr. Stringer * DISCHARGE SUMMARY: DATE OF ADMISSION: 01/03/18 DATE OF DISCHARGE: 01/05/18 PRIMARY CARE PHYSICIAN: Dr. Ramirez. ATTENDING PHYSICIAN: Dr. Magdy Lopez * (dictation provided by Layla Pacheco NP). PRIMARY DIAGNOSES: 1. Colitis, ischemic vs infectious (biopsy results pending). 2. Lower gastrointestinal bleeding. SECONDARY DIAGNOSES: 1. Hypertension. 2. Hyperlipidemia. DISCHARGE MEDICATIONS: 1. Cipro 500 mg p.o. b.i.d. x8 days. 2. Flagyl 500 mg p.o. t.i.d. x8 days. 3. Pravachol 80 mg p.o. daily. 4. Lisinopril 10 mg p.o. daily. Hold aspirin and Mobic until followup with primary care provider. HOSPITAL COURSE: Ms. Forte is a 72-year-old female with a past medical history of hypertension, who presented to the hospital on 01/03/18 with concern for diarrhea with GI bleeding. Please see the dictated H and P from Joshua Seaman NP, for complete details. In brief, the patient states that she had developed diarrhea on about the Tuesday prior to admission. This persisted intermittently and ultimately was associated with bright red blood per rectum that was quite significant and therefore, she came to the emergency room for evaluation. In the emergency room, she had an abdomen and pelvis CT, which showed "there was mucosal thickening of the colon from the splenic flexure to the proximal descending colon with paracolonic edema and some free fluid in the pelvis. Findings are suspicious for colitis, which may be infectious, ischemic , or inflammatory. Small amount of free fluid was noted in the pelvis. Prominent ovarian and uterine vessels are noted with a prominent left ovarian vein and the possibility of pelvic congestion should be considered." The patient's labs showed that she was not anemic, her hemoglobin was 12.9, hematocrit 37. She was mildly hyponatremic with a sodium of 128, her CRP was 11.13. She was not febrile. Ms. Forte was admitted to the hospital with suspicion based on her examination and clinical presentation for colitis. She had orthostatics that showed she was orthostatic on arrival, therefore IV fluids were initiated. She had a transthoracic echocardiogram, which showed an ejection fraction of 60% to 65%. No significant valvular abnormalities. She was monitored on telemetry unit without evidence of arrhythmia. For her GI bleed, she continued to have monitoring of hemoglobin and hematocrit , which have drifted down only very slightly and today are 11.4 and 33 respectively. She had a consultation with Dr. Stringer from Gastroenterology and ultimately went on for a flex sigmoidoscopy with Dr. Khalil. I refer you to all that documentation for details, but in brief, the summary from the flex sigmoidoscopy showed "mild exudative erythematosus and granular colitis from the 30 cm to 70 cm of the colon, appears to be more ischemic colitis versus infectious colitis, multiple biopsies were obtained from this area. Cecum, ascending colon, transverse colon, and rectum were otherwise normal appearing, fair colonoscopy preparation." The patient is doing very well today. She has had no diarrhea, no blood per rectum. She is ambulating independently in her room. She has no further orthostatics. Her hyponatremia corrected with IV fluids. During the hospitalization, she remained on Cipro and Flagyl IV and now will be transitioned to complete a 10-day course of that orally. Based on the note from Dr. Khalil, there appears to be some continued question about ischemic colitis. The biopsy report is pending. The patient will be following closely with her primary care physician. I will also note that Dr. Khalil recommends that she go on for a normal screening colonoscopy as this was only a flex sig. Ms. Forte is stable for discharge to home and will follow up with Dr. Ramirez. Please note, the patient was asked to hold aspirin and Mobic during this acute bleed and that she should follow up with Dr. Ramirez before resuming these medications. DISPOSITION: To home. DIET: Low salt. ACTIVITY: As tolerated. FOLLOWUP PLAN: Please follow up with Dr. Ramirez in the next 3 to 5 days regarding this acute hospitalization. TIME SPENT: Approximately 60 minutes was spent in discharge of this patient, more than half that time was spent with the patient at the bedside reviewing the events leading up to this hospitalization, performing the physical examination, and reviewing the discharge plan. LAYLA PACHECO NP [id number]/[facility] #: [id number] [facility]
== END 2018-01-05 15:20 | disposition home or self-care (01) ==
LOC: ED 05:44 → MEDTELE 11:33
PROVIDERS: ADMIT Internal Medicine; ATTEND Internal Medicine
PROC: 0DBM8ZX Excision of Descending Colon, Via Natural or Artificial Opening Endoscopic, Diagnostic (ICD-10-PCS; principal; 2018-01-03)
DX: K52.9 Noninfective gastroenteritis and colitis, unspecified (principal); K92.2 Gastrointestinal hemorrhage, unspecified; I10 Essential (primary) hypertension; E78.5 Hyperlipidemia, unspecified; Z79.899 Other long term (current) drug therapy; Z88.2 Allergy status to sulfonamides; R10.30 Lower abdominal pain, unspecified; R55 Syncope and collapse; E87.1 Hypo-osmolality and hyponatremia
CPT/HCPCS: 36415; 74177; 80048; 80053; 81003; 81015; 82270; 83605; 83630; 84484; 85014; 85018; 85025; 85610; 85652; 85730; 86140; 86850; 86900; 86901; 87045; 87046; 87328; 87329; 87493; 87899; 88305; 93005; 93306; 96365; 96366; 96367; 99156; 99157; 99284; A9270-GY; G0378; J0744; J2250; J3010; J3490; Q9967